=== PATIENT | female | born 2000 | race Two or more races ===

== ENCOUNTER 2025-01-13 08:02 | Emergency (ER) | payer OTHER ==
[2025-01-13 08:14] VITALS: BMI 34.3
[2025-01-13] MEDS: SODIUM CHLORIDE 0.9% 500 ML INFUS.BAG IV ONE (09:08)
[2025-01-13 09:19] LABS: ABSOLUTE IMMATURE GRANULOCYTES 0.02 x10^3/uL (0.0-0.031); BASOPHILS # 0.03 x10^3/uL (0.01-0.08); EOSINOPHIL % 1.3 % (0.7-5.8); EOSINOPHILS # 0.11 x10^3/uL (0.04-0.36); HEMATOCRIT 38.1 % (34.1-44.9); HEMOGLOBIN 12.6 g/dL (11.2-15.7); MCHC 33.1 g/dl (32.2-35.5); MEAN CELL VOLUME 85.4 fl (79.4-94.8); MEAN PLT VOLUME 10.9 fl (9.4-12.3); MONOCYTE # 0.63 x10^3/uL (0.24-0.86); MONOCYTE % 7.7 % (4.7-12.5); PLATELET COUNT 320 x10^3/uL (182-369); RDW 12.4 % (12.1-16.5)
[2025-01-13 09:20] LABS: URINE APPEARANCE CLEAR; URINE BILIRUBIN NEGATIVE (NEGATIVE); URINE COLOR YELLOW; URINE GLUCOSE (UA) NEGATIVE (NEGATIVE); URINE KETONE NEGATIVE (NEGATIVE); URINE LEUK ESTERASE NEGATIVE (NEGATIVE); URINE NITRITE NEGATIVE (NEGATIVE); URINE PROTEIN NEGATIVE (NEGATIVE); URINE UROBILINOGEN 0.2 mg/dL (0.2-1.0)
[2025-01-13] MEDS ORDERED: ACETAMINOPHEN INJECTION 100 ML ONE (09:56)
[2025-01-13] MEDS: ACETAMINOPHEN 1000 MG/100 ML BAG IVPB ONE (10:01)
[2025-01-13 10:06] LABS: HCG,QUALITATIVE URINE Negative
[2025-01-13 10:09] LABS: POTASSIUM 5.6 mmol/L (3.5-5.1)
[2025-01-13 10:11] LABS: ALBUMIN 3.6 g/dl (3.4-5.0); BLOOD UREA NITROGEN 11.4 mg/dL (7-18); CALCIUM 9.2 mg/dL (8.5-10.1)
[2025-01-13] MEDS ORDERED: FAMOTIDINE 10 MG TABLET ONE (10:12)
[2025-01-13] MEDS ORDERED: MAG HYDROX/AL HYDROX/SIMETH 30 ML UNIT-DOSE CUP ONE (10:12)
[2025-01-13 10:15] LABS: CREATININE 0.6 mg/dL (0.55-1.3)
[2025-01-13 10:16] LABS: BILIRUBIN,TOTAL 0.9 mg/dL (0.2-1); TOT PROT 7.7 g/dl (6.4-8.2)
[2025-01-13] MEDS: FAMOTIDINE 10 MG TABLET PO ONE (10:17)
[2025-01-13] MEDS: MAG HYDROX/AL HYDROX/SIMETH 30 ML UNIT-DOSE CUP PO ONE (10:17)
[2025-01-13 12:15] VITALS: BP 104/68; PULSE 69; RESP 18; TEMP 98.7
== END 2025-01-13 12:29 | disposition home or self-care (01) ==
LOC: JER 08:02
PROC: 3E033NZ Introduction of Analgesics, Hypnotics, Sedatives into Peripheral Vein, Percutaneous Approach (ICD-10-PCS; principal; 2025-01-13)
DX: R07.9 Chest pain, unspecified (principal); R10.13 Epigastric pain
CPT/HCPCS: 36415; 76705-TC; 80053; 81003; 83690; 84703; 85025; 93005; 93010; 99285-25; J0131